=== PATIENT | female | born 1970 | race African-American/Black ===

== ENCOUNTER → 2024-11-28 | Day surgery (SDC) | payer MEDICARE ==
[~2024-11-28] MED LIST: AMLODIPINE BESYL5 MG PO; CENTRUM ADULTS1 EACH PO; FENTANYL CITRATE/PF 100MCG/2 ML INJ ONE; FLAX SEED OIL1 EACH; GINGER500 MG; LIDOCAINE HCL 2% LOCAL INJ 5 ML SDV VIAL INJ ONE; OMEPRAZOLE40 MG PO; ONDANSETRON HCL INJ 2MG/ML 2ML 2 MG/ML VIAL ONE; PROPOFOL IV EMULSION 50 ML IV ONE; STRIBILD TABLE1 EACH PO; [UNRECOGNIZED DRUG - REMARK]
[2024-11-28] MEDS: LACTATED RINGER'S 1,000 ML ONE (13:58)
[2024-11-28 15:38] VITALS: TEMP 97.7
[2024-11-28 15:50] VITALS: BP 128/68; PULSE 78; RESP 16; O2SAT 95
== END | disposition home or self-care (01) ==
LOC: OR 12:59
PROVIDERS: ATTEND Internal Medicine Gastroenterology
DX: Z12.11 Encounter for screening for malignant neoplasm of colon (principal); K31.7 Polyp of stomach and duodenum; K29.50 Unspecified chronic gastritis without bleeding; K21.9 Gastro-esophageal reflux disease without esophagitis; K57.30 Diverticulosis of large intestine without perforation or abscess without bleeding; K63.89 Other specified diseases of intestine; K64.8 Other hemorrhoids; K44.9 Diaphragmatic hernia without obstruction or gangrene; I10 Essential (primary) hypertension; Z91.041 Radiographic dye allergy status; Z79.1 Long term (current) use of non-steroidal anti-inflammatories (NSAID); Z79.899 Other long term (current) drug therapy; Z68.42 Body mass index [BMI] 45.0-49.9, adult; Z87.898 Personal history of other specified conditions
CPT/HCPCS: 43239; 45380; 88112; 88305; 88312; 93005; J2003; J2405; J2704; J3010; J7121; 43235; 45378